=== PATIENT | male | born 1985 | race Native Hawaiian/Other Pacific Islander ===

== ENCOUNTER 2023-01-15 12:13 | Emergency (ER) | payer OTHER ==
[~2023-01-15] VITALS: Ht 182.9 cm; Wt 93.0 kg
[2023-01-15 12:31] VITALS: TEMP 98.8
[2023-01-15 13:25] VITALS: BP 123/73
== END 2023-01-15 13:26 | disposition home or self-care (01) ==
LOC: ED 12:13
PROC: 2W3QX1Z Immobilization of Right Lower Leg using Splint (ICD-10-PCS; principal; 2023-01-15)
DX: S93.491A Sprain of other ligament of right ankle, initial encounter (principal); W11.XXXA Fall on and from ladder, initial encounter; Y92.89 Other specified places as the place of occurrence of the external cause
CPT/HCPCS: 80307; 96372; 99283; J1885

== ENCOUNTER → 2023-01-25 | Outpatient (CLI) | payer OTHER | LOC: RAD 22:00 | PROVIDERS: ATTEND Family Medicine | DX: S93.401D Sprain of unspecified ligament of right ankle, subsequent encounter (principal); M79.671 Pain in right foot; Y92.89 Other specified places as the place of occurrence of the external cause ==